=== PATIENT | female | born 1940 | race Caucasian/White ===

== ENCOUNTER 2016-10-24 13:08 | Emergency (ER) | payer MEDICARE, OTHER ==
--- NOTE | 2016-10-24 13:35 | Emergency Department Record ---
History of Present Illness - General Chief complaint: Female Urogenital Problem Stated complaint: UTI Time Seen by Provider: 10/24/16 13:28 Source: Patient Mode of Arrival: Ambulatory Limitations: No limitations - History of Present Illness Initial comments: 76 yo female presents to ED with a CC of burning with urination associated with frequency, urgency, and hematuria symptoms. Patient reports a history of similar symptoms related to urinary tract infections, denies nausea, vomiting, or flank pain symptoms. Patient denies fevers, chills, or recent illness. Patient paulino snot take anticoagulation medications at her baseline. MD Complaint: Dysuria Onset/Timin -: Hour(s) Severity: Moderate Severity scale (1-10): 10 Quality: Burning, Stabbing Consistency: Getting worse Improves with: None Worsens with: Urination Associated Symptoms: Denies other symptoms - Related Data Previous Rx's Medication Instructions Recorded Ciprofloxacin HCl [Cipro] 500 mg PO Q12HR #14 tablet 10/24/16 Allergies Allergy/AdvReac Type Severity Reaction Status Date / Time nitrofurantoin Allergy Intermediate RASH Verified 10/24/16 13:18 [From Macrobid] nitrofurantoin Allergy Intermediate RASH Verified 10/24/16 13:18 macrocrystalline [From Macrodantin] penicillin V Allergy Intermediate rash Verified 10/24/16 13:18 Sulfa (Sulfonamide Allergy Intermediate SWELLING Verified 10/24/16 13:18 Antibiotics) OF THE FACE sulfamethoxazole Allergy Intermediate SWELLING Verified 10/24/16 13:18 [From Bactrim] OF THE FACE trimethoprim [From Bactrim] Allergy Intermediate SWELLING Verified 10/24/16 13: 18 OF THE FACE Travel Screening - Travel/Exposure Within Last 30 Days Have you traveled within the last 30 days?: No - Travel/Exposure Within Last Year Have you traveled outside the [place] in the last year?: No - Additonal Travel Details Have you been exposed to anyone with a communicable illness?: No - Travel Symptoms Symptom Screening: None Review of Systems Constitutional: Denies: Chills, Fever, Malaise, Night sweats Eyes: Denies: Eye discharge, Eye pain ENT: Denies: Congestion, Ear pain, Epistaxis Respiratory: Denies: Cough, Dyspnea Cardiovascular: Denies: Chest pain, Dyspnea on exertion Endocrine: Denies: Fatigue, Heat or cold intolerance Gastrointestinal: Denies: Abdominal pain, Nausea, Vomiting Genitourinary: Reports: Dysuria, Frequency, Hematuria, Urgency. Denies: Retention Musculoskeletal: Denies: Arthralgia, Back pain, Gout, Joint swelling Skin: Denies: Bruising, Change in color Neurological: Denies: Abnormal gait, Confusion, Headache Psychiatric: Denies: Anxiety Hematological/Lymphatic: Denies: Anemia, Blood Clots Past Medical History - SOCIAL HISTORY Smoking Status: Never smoker Alcohol Use: None Drug Use: None - RESPIRATORY Hx Respiratory Disorders: No - CARDIOVASCULAR Hx Cardio Disorders: Yes Hx Edema: Yes Hx Hypertension: Yes - NEURO Hx Neuro Disorders: No - GI Hx GI Disorders: Yes Hx Reflux: Yes Hx Ulcer: Yes - Hx Genitourinary Disorders: No - ENDOCRINE Hx Endocrine Disorders: Yes Hx Diabetes: Yes Hx Thyroid Disease: Yes (low) - MUSCULOSKELETAL Hx Musculoskeletal Disorders: No - PSYCH Hx Psych Problems: Yes Hx Anxiety: Yes Hx Depression: Yes - HEMATOLOGY/ONCOLOGY Hx Hematology/Oncology Disorders: Yes Hx Cancer: Yes (Colon) Hx Chemotherapy: Yes Hx Radiation Therapy: No Family Medical History Any Significant Family History?: Yes Hx Cancer: Father, Mother, Brother/Sister Hx Diabetes: Father Hx Heart Disease: Mother Physical Exam - General General Appearance: Alert, Oriented x3, Cooperative, No acute distress, Other ( patient is sitting in chair, well appearing on examination) Limitations: No limitations - Head Head exam: Atraumatic, Normocephalic, Normal inspection Head exam detail: negative: Abrasion, Contusion, Hawthorne's sign, General tenderness, Hematoma, Laceration - Eye Eye exam: Normal appearance. negative: Conjunctival injection, Periorbital swelling, Periorbital tenderness, Scleral icterus - ENT Ear exam: negative: Auricular hematoma, Auricular trauma Nasal Exam: negative: Active bleeding, Discharge, Dried blood, Foreign body Mouth exam: negative: Drooling, Laceration, Muffled voice, Tongue elevation - Neck Neck exam: Normal inspection. negative: Meningismus, Tenderness - Respiratory Respiratory exam: Normal lung sounds bilaterally. negative: Respiratory distress, Rhonchi, Stridor, Wheezes - Cardiovascular Cardiovascular Exam: Regular rate, Normal rhythm, Normal heart sounds - GI/Abdominal GI/Abdominal exam: Soft. negative: Pulsatile mass, Rebound, Rigid, Tenderness - Rectal Rectal exam: Deferred - exam: Deferred - Extremities Extremities exam: Normal inspection. negative: Calf tenderness, Pedal edema, Tenderness - Back Back exam: Reports: Normal inspection. Denies: CVA tenderness (R), CVA tenderness (L) - Neurological Neurological exam: Alert, Normal gait, Oriented X3 - Psychiatric Psychiatric exam: Normal affect, Normal mood - Skin Skin exam: Normal color. negative: Abrasion Type of lesion: negative: abrasion Course Vital Signs 10/24/16 13:17 Temperature 97.4 F L Pulse Rate [ 95 H Pulse Ox Probe] Respiratory 12 Rate Blood Pressure 143/68 [Right Arm] Pulse Ox 100 - Reevaluation(s) Reevaluation #1: 10/24/16 13:44 UA reviewed, RBC's are TNTC, 36-50 WBCs, 1+ Bacteria are present. Patient denies any flank or back pain symptoms, denies fevers, chills, nausea, vomiting , or other systemic signs of illness. Patient is well appearing on examination without any clinical signs of kidney stone complicating her UTI symptoms. Will initiate treatment with Macrobid with instructions to return for any back pain symptoms, fever, or worsening of her symptoms. Patient verbalizes understanding of all instructions. Disposition Disposition: Discharge Clinical Impression: UTI (urinary tract infection) Qualifiers: Urinary tract infection type: acute cystitis Hematuria presence: with hematuria Qualified Code(s): N30.01 - Acute cystitis with hematuria Disposition: Home, Self-Care Condition: (2) Stable Instructions: Urinary Tract Infection in Women (ED) Additional Instructions: Return to ED if your symptoms worsen or if you have any concerns. Cipro as directed. Follow-up with your family doctor in 3-5 days as directed. Prescriptions: Ciprofloxacin HCl [Cipro] 500 mg PO Q12HR #14 tablet Forms: Patient Portal Access Time of Disposition: 13:48
[2016-10-24 13:37] LABS: URINE APPEARANCE CLOUDY; URINE BILIRUBIN MODERATE (NEGATIVE); URINE BLOOD LARGE (NEGATIVE); URINE COLOR RED; URINE GLUCOSE (UA) NEGATIVE (NEGATIVE); URINE KETONE 15 mg/dL (NEGATIVE); URINE LEUKOCYTE ESTERASE LARGE (NEGATIVE); URINE NITRITE POSITIVE (NEGATIVE)
[2016-10-24 13:41] LABS: URINE BACTERIA 1+; URINE EPITHELIAL CELLS 0 - 2 (FEW); URINE WBC 36 - 50 (0-2/hpf)
== END 2016-10-24 14:00 | disposition home or self-care (01) ==
LOC: ER 13:08
DX: N30.01 Acute cystitis with hematuria (principal)
CPT/HCPCS: 81001; 99282

== ENCOUNTER 2019-01-12 20:29 | Observation (INO) | payer MEDICARE, OTHER ==
--- NOTE | 2019-01-12 20:39 | Emergency Department Record ---
History of Present Illness - General Chief Complaint: Syncope Stated Complaint: NEAR SYNCOPY Time Seen by Provider: 01/12/19 20:31 Source: Patient, EMS Mode of Arrival: EMS Limitations: No limitations - History of Present Illness Initial Comments: 78 yo female presents to ED for evaluation of generalized weakness and near syncope that began 2 days ago. Patient reports numerous loose stools, denies fevers, chills, or productive cough symptoms. Patient does report a history of colon cancer in 1993 now in remission s/p partial colectomy. Patient reports diffuse abdominal "cramping" on examination as well. Patient's initial SBP 70' s on arrival, improved 120's following 500 mL bolus given by EMS providers. MD Complaint: Almost passed out Onset/Timin -: Minutes(s) Prodromal Symptoms: Lightheaded -: Second(s) Witnessed: Yes - by bystander Injuries Sustained Associated with Event: None Current Symptoms: Weakness Treatments Prior to Arrival: IV fluids - [place] Coma Scale Eye Response: (4) Open spontaneously Motor Response: (6) Obeys commands Verbal Response: (5) Oriented [place] Total: 15 - Related Data On Hormonal Control: No Allergies Allergy/AdvReac Type Severity Reaction Status Date / Time nitrofurantoin Allergy Intermediate RASH Unverified 01/10/19 14:41 [From Macrobid] nitrofurantoin Allergy Intermediate RASH Unverified 01/10/19 14:41 macrocrystalline [From Macrodantin] penicillin V Allergy Intermediate rash Unverified 01/10/19 14:41 Sulfa (Sulfonamide Allergy Intermediate SWELLING Unverified 01/10/19 14:41 Antibiotics) OF THE FACE sulfamethoxazole Allergy Intermediate SWELLING Unverified 01/10/19 14:41 [From Bactrim] OF THE FACE trimethoprim [From Bactrim] Allergy Intermediate SWELLING Unverified 01/10/19 14 :41 OF THE FACE Review of Systems Constitutional: Denies: Chills, Fever, Malaise, Night sweats Eyes: Denies: Eye discharge, Eye pain ENT: Denies: Congestion, Ear pain, Epistaxis Respiratory: Denies: Cough, Dyspnea Cardiovascular: Denies: Chest pain, Dyspnea on exertion Endocrine: Denies: Fatigue, Heat or cold intolerance Gastrointestinal: Reports: Abdominal pain, Diarrhea. Denies: Constipation, Nausea, Vomiting Genitourinary: Denies: Incontinence, Retention Musculoskeletal: Denies: Arthralgia, Back pain, Gout, Joint swelling Skin: Denies: Bruising, Change in color Neurological: Denies: Abnormal gait, Confusion, Headache, Seizure Psychiatric: Denies: Anxiety Hematological/Lymphatic: Denies: Anemia, Blood Clots Past Medical History - SOCIAL HISTORY Smoking Status: Never smoker Drug Use: None - RESPIRATORY Hx Respiratory Disorders: No - CARDIOVASCULAR Hx Cardio Disorders: Yes Hx Edema: Yes Hx Hypertension: Yes - NEURO Hx Neuro Disorders: No - GI Hx GI Disorders: Yes Hx Reflux: Yes Hx Ulcer: Yes - Hx Genitourinary Disorders: No - ENDOCRINE Hx Endocrine Disorders: Yes Hx Diabetes: Yes Hx Thyroid Disease: Yes (low) - MUSCULOSKELETAL Hx Musculoskeletal Disorders: No - PSYCH Hx Psych Problems: Yes Hx Anxiety: Yes Hx Depression: Yes - HEMATOLOGY/ONCOLOGY Hx Hematology/Oncology Disorders: Yes Hx Cancer: Yes (Colon) Hx Chemotherapy: Yes Hx Radiation Therapy: No Family Medical History Hx Cancer: Father, Mother, Brother/Sister Hx Diabetes: Father Hx Heart Disease: Mother Physical Exam - General General Appearance: Alert, Oriented x3, Cooperative, Moderate distress, Other ( Appears pale on examination, weak and exhausted.) Limitations: No limitations - Head Head exam: Atraumatic, Normocephalic, Normal inspection Head exam detail: negative: Abrasion, Contusion, Hawthorne's sign, General tenderness, Hematoma, Laceration - Eye Eye exam: Normal appearance. negative: Conjunctival injection, Periorbital swelling, Periorbital tenderness, Scleral icterus - ENT Ear exam: negative: Auricular hematoma, Auricular trauma Nasal Exam: negative: Active bleeding, Discharge, Dried blood, Foreign body Mouth exam: negative: Drooling, Laceration, Muffled voice, Tongue elevation - Neck Neck exam: Normal inspection. negative: Meningismus, Tenderness - Respiratory Respiratory exam: Normal lung sounds bilaterally. negative: Rales, Respiratory distress, Rhonchi, Stridor - Cardiovascular Cardiovascular Exam: Regular rate, Normal rhythm, Normal heart sounds - GI/Abdominal GI/Abdominal exam: Soft. negative: Rebound, Rigid, Tenderness - Rectal Rectal exam: Deferred - exam: Deferred - Extremities Extremities exam: Normal inspection. negative: Calf tenderness, Pedal edema, Tenderness - Back Back exam: Denies: CVA tenderness (R), CVA tenderness (L) - Neurological Neurological exam: Alert, Normal gait, Oriented X3 - Psychiatric Psychiatric exam: Normal affect, Normal mood - Skin Skin exam: Normal color. negative: Abrasion Type of lesion: negative: abrasion Course - Reevaluation(s) Reevaluation #1: 01/12/19 20:38 EKG: NSR 78 Normal axis, LBBB T wave inversions I, AVL similar to 02/18/15 (unchanged) Reevaluation #2: 01/12/19 22:19 Laboratory studies were reviewed and are grossly unremarkable for an acute process except for the following: WBC 8.8 Hgb 11.3 BUN/Creatinine 41/1.9, GFR 27 (slihgtly less than the patient's baseline). LA 3.1. Patient has received 1.5 Liters NS, going for CT imaging of the abdoemn/pelvis at this time. Reevaluation #3: 01/12/19 23:34 CT Abdomen and Pelvis: Colitis from the transverse colon to the rectum No perforation/abscess Small fatty midline epigastric wall hernia Patient and her SO were updated on all results, will initiate treatment with Flagyl and Rocephin for initial treatment of her colitis. C. Diff toxin is till pending at [facility]. Reevaluation #4: 01/13/19 06:50 Case was discussed with Harika Koch NP, will accept admission at this time. Medical Decision Making - Lab Data Result diagrams: 01/12/19 20:44 01/12/19 20:55 Disposition Disposition: Admit Clinical Impression: Colitis, Dehydration Diarrhea Qualifiers: Diarrhea type: infectious Qualified Code(s): A09 - Infectious gastroenteritis and colitis, unspecified Disposition: Still a Patient at [facility] Decision to Admit: Admit from ER Decision to Admit Date: 01/12/19 Decision to Admit Time: 23:38 Condition: (2) Stable Time of Disposition: 23:38 Quality - Quality Measures Quality Measures: N/A - Blood Pressure Screening Does Patient Have Any of the Following: Active Dx of HTN Blood Pressure Classification: Hypertensive Reading Systolic Measurement: 144 Diastolic Measurement: 66 Screening for High Blood Pressure: Patient Exclusion, Hx of HTN [[id number]]
[2019-01-12] MEDS ORDERED: 0.9 % SODIUM CHLORIDE 1000ML 1,000 ML IV SCH (20:45)
[2019-01-12 20:50] LABS: HEMATOCRIT 33.8 % (35.0-47.0); HEMOGLOBIN 11.3 gm/dl (11.6-16.0); MEAN CELL VOLUME 104.6 fl (81-97); MEAN CORPUSCULAR HGB CONC 33.4 g/dl (32-36); MEAN PLATELET VOLUME 10.9 fl (7.4-10.4); PLATELET COUNT 261 K/uL (130-400); RED BLOOD COUNT 3.23 M/uL (3.80-5.40); RED CELL DISTRIBUTION WIDTH 15.6 % (11.5-14.5); WHITE BLOOD COUNT W/O DIFF 8.8 K/uL (4.2-12.2)
[2019-01-12 20:51] LABS: MEAN CORPUSCULAR HEMOGLOBIN 34.9 pg (27-33)
[2019-01-12 22:02] LABS: BILIRUBIN,TOTAL 0.4 mg/dL (0.2-1.0); CREATININE 1.9 mg/dL (0.5-0.9); TOTAL PROTEIN 6.3 g/dL (6.6-8.7)
[2019-01-12 22:02] LABS: ANISOCYTOSIS 1+; PLATELET ESTIMATE NORMAL (NORMAL)
[2019-01-12 22:07] LABS: ALB/GLOB RATIO 1.3 (1.1-1.8); ALBUMIN 3.6 g/dL (4.0-5.0)
[2019-01-12] MEDS: ZINC OXIDE TOP SCH ×3 (22:09)
[2019-01-12] MEDS: AL HYDROX TOP SCH ×3 (22:09)
[2019-01-12] MEDS: NYSTATIN TOP SCH ×3 (22:09)
[2019-01-12] MEDS: MAGNESIUM HYDROXIDE TOP SCH ×3 (22:09)
[2019-01-12 22:17] LABS: URINE APPEARANCE SL CLOUDY; URINE BILIRUBIN NEGATIVE (NEGATIVE); URINE BLOOD NEGATIVE (NEGATIVE); URINE COLOR YELLOW; URINE GLUCOSE (UA) NEGATIVE (NEGATIVE); URINE KETONE NEGATIVE (NEGATIVE); URINE LEUKOCYTE ESTERASE MODERATE (NEGATIVE); URINE NITRITE NEGATIVE (NEGATIVE); URINE PROTEIN NEGATIVE (NEGATIVE); URINE UROBILINOGEN 0.2 E.U./dL (0.20 - 1.00)
[2019-01-12 22:24] LABS: URINE BACTERIA 4+; URINE EPITHELIAL CELLS 0 - 2 (FEW); URINE RBC 0 - 2 (NONE SEEN); URINE WBC 21 - 35 (0-2/hpf)
[2019-01-12] MEDS ORDERED: METRONIDAZOLE IVPB 500 MG/100 ML BAG IVPB ONE (23:37)
[2019-01-12] MEDS ORDERED: CEFTRIAXONE 1GM/50ML BAG 1 GM/50 ML BAG IVPB ONE (23:37)
[2019-01-13] MEDS ORDERED: 0.9 % SODIUM CHLORIDE 1000ML 1,000 ML IV PRN (00:44)
[2019-01-13] MEDS ORDERED: LEVOTHYROXINE SODIUM 75 MCG TABLET PO SCH (07:00)
[2019-01-13] MEDS: METRONIDAZOLE IVPB 500 MG/100 ML BAG IVPB SCH ×2 (09:35→18:58)
[2019-01-13] MEDS: LEVOTHYROXINE SODIUM 75 MCG TABLET PO SCH (09:35)
[2019-01-13] MEDS: NYSTATIN TOP SCH ×12 (09:42→22:00)
[2019-01-13] MEDS: MAGNESIUM HYDROXIDE TOP SCH ×12 (09:42→22:00)
[2019-01-13] MEDS: AL HYDROX TOP SCH ×12 (09:42→22:00)
[2019-01-13] MEDS: ZINC OXIDE TOP SCH ×12 (09:42→22:00)
[2019-01-13] MEDS: 0.9 % SODIUM CHLORIDE 1000ML 1,000 ML IV PRN (11:56)
--- NOTE | 2019-01-13 18:17 | History & Physical ---
History of Present Illness - Date of Service Date of Service for History & Physical: 01/13/19 - History of Present Illness Admitting Diagnosis: Colitis. Dehydration. Diarrhea History of Present Illness: Domi Sanderson is an 78 y/o female brought to ED for 2 day history of generalized weakness, near syncope, and persistent loose stools and abdominal cramping. She denied fevers cough, blood in stool. + nausea at the time without vomiting. SHe does have a hx of colon cancer in 1993 s/p partial colectomy. Last colonoscopy within the last year and was normal. She denies any sick contacts. She denies any antibiotic use in the last 30 days. Denies any previous history of colon infections or chronic colitis. Past medical history includes HTN, GERD, Dm-2, hypothyroidism, anxiety, depression, colon cancer, renal insufficiency While in the ED WBC 8.8, Hgb 11.3, MCV 104.6, sodium 133, potassium 4.0, BUN/Cr 41/1.9, lactic acid 3.1, lipase, U/A- moderate leukocytes, 4+ bacteria, 21-[address] abdomen/pelvis + for colitis from distal transverse colon to rectum. EKG NSR, LBBB, atrial premature complex. Stools were sent to lab for c-diff culture. She was admitted to the floor for IV antibiotics, IV hydration, supportive care. 01/13/19 1030- Resting in bed comfortably. Reports has had no diarrhea since arriving to the floor. Denies nausea or any further dizziness or presyncope/ syncope. Denies abdominal pain but does have quite a bit of abdominal cramping. Has tolerated a clear liquid diet this am PCP: Loni Staton [employer] Operator: [facility] [place] Nephrology Travel Screening - Travel/Exposure Within Last 30 Days Have you traveled within the last 30 days?: No - Travel/Exposure Within Last Year Have you traveled outside the [place] in the last year?: No - Additonal Travel Details Have you been exposed to anyone with a communicable illness?: No - Travel Symptoms Symptom Screening: Weakness, Diarrhea Review of Systems Constitutional: Denies: Chills, Fever, Malaise, Night sweats Eyes: Denies: Eye discharge, Eye pain ENT: Denies: Congestion, Ear pain, Epistaxis Respiratory: Denies: Cough, Dyspnea Cardiovascular: Denies: Chest pain, Dyspnea on exertion Endocrine: Denies: Fatigue, Heat or cold intolerance Gastrointestinal: Reports: Abdominal pain, Diarrhea. Denies: Constipation, Nausea, Vomiting Genitourinary: Denies: Incontinence, Retention Musculoskeletal: Denies: Arthralgia, Back pain, Gout, Joint swelling Skin: Denies: Bruising, Change in color Neurological: Denies: Abnormal gait, Confusion, Headache, Seizure Psychiatric: Denies: Anxiety Hematological/Lymphatic: Denies: Anemia, Blood Clots Past Medical History - SOCIAL HISTORY Smoking Status: Never smoker Drug Use: None - RESPIRATORY Hx Respiratory Disorders: No - CARDIOVASCULAR Hx Cardio Disorders: Yes Hx Edema: Yes Hx Hypertension: Yes - NEURO Hx Neuro Disorders: No - GI Hx GI Disorders: Yes Hx Reflux: Yes Hx Ulcer: Yes - Hx Genitourinary Disorders: No - ENDOCRINE Hx Endocrine Disorders: Yes Hx Diabetes: Yes Hx Thyroid Disease: Yes (low) - MUSCULOSKELETAL Hx Musculoskeletal Disorders: No - PSYCH Hx Psych Problems: Yes Hx Anxiety: Yes Hx Depression: Yes - HEMATOLOGY/ONCOLOGY Hx Hematology/Oncology Disorders: Yes Hx Cancer: Yes (Colon) Hx Chemotherapy: Yes Hx Radiation Therapy: No Family Medical History Hx Cancer: Father, Mother, Brother/Sister Hx Diabetes: Father Hx Heart Disease: Mother H&P Meds/Allergies - Allergies Allergies: Allergies Allergy/AdvReac Type Severity Reaction Status Date / Time nitrofurantoin Allergy Intermediate RASH Unverified 01/10/19 14:41 [From Macrobid] nitrofurantoin Allergy Intermediate RASH Unverified 01/10/19 14:41 macrocrystalline [From Macrodantin] penicillin V Allergy Intermediate rash Unverified 01/10/19 14:41 Sulfa (Sulfonamide Allergy Intermediate SWELLING Unverified 01/10/19 14:41 Antibiotics) OF THE FACE sulfamethoxazole Allergy Intermediate SWELLING Unverified 01/10/19 14:41 [From Bactrim] OF THE FACE trimethoprim [From Bactrim] Allergy Intermediate SWELLING Unverified 01/10/19 14 :41 OF THE FACE - Active Medications Active Medications: Current Medications Nystatin 30 gm/ Al Hydroxide/Mg Hydroxide 30 ml/ Zinc Oxide 30 gm 0 gm TOP QID CHASE Last Admin: 01/13/19 14:34 Dose: 30 cream.appl Metronidazole/Sodium Chloride (Flagyl) 500 mg in 100 mls @ 100 mls/hr IVPB Q8H COUNTS INCLUDE 234 BEDS AT THE [facility] Stop: 01/18/19 09:31 Last Infusion: 01/13/19 10:35 Dose: Infused Sodium Chloride () 1,000 mls @ 100 mls/hr IV .Q10H PRN PRN Reason: LARGE VOLUME IV Last Admin: 01/13/19 11:56 Dose: 100 mls/hr Levothyroxine Sodium (Synthroid) 75 mcg PO DAILYTHY CHASE Last Admin: 01/13/19 09:35 Dose: 75 mcg Physical Exam - Vital Signs Vital Signs: Vital Signs - Last 24 Hrs Temp Pulse Pulse Resp BP BP Pulse Ox 01/13/19 16:00 98.1 F 84 16 141/72 97 01/13/19 12:00 98.7 F 86 H 144/80 98 01/13/19 08:00 97.6 F 73 16 126/68 93 L 01/13/19 03:00 97.1 F L 85 18 107/55 97 01/13/19 00:25 98.0 F 95 H 18 140/71 97 01/13/19 00:05 94 H 144/66 97 01/12/19 22:14 85 18 136/63 97 01/12/19 20:35 97.6 F 77 20 128/57 97 - General General Appearance: Alert, Oriented x3, Cooperative Limitations: No limitations - Head Head exam: Atraumatic, Normocephalic, Normal inspection Head exam detail: negative: Abrasion, Contusion, Hawthorne's sign, General tenderness, Hematoma, Laceration - Eye Eye exam: Normal appearance. negative: Conjunctival injection, Periorbital swelling, Periorbital tenderness, Scleral icterus - ENT Ear exam: negative: Auricular hematoma, Auricular trauma Nasal Exam: negative: Active bleeding, Discharge, Dried blood, Foreign body Mouth exam: negative: Drooling, Laceration, Muffled voice, Tongue elevation - Neck Neck exam: Normal inspection. negative: Meningismus, Tenderness - Respiratory Respiratory exam: Normal lung sounds bilaterally. negative: Rales, Respiratory distress, Rhonchi, Stridor - Cardiovascular Cardiovascular Exam: Regular rate, Normal rhythm, Normal heart sounds Peripheral Pulses: 2+: Dorsalis Pedis (R), Dorsalis Pedis (L) - GI/Abdominal GI/Abdominal exam: Soft, Hyperactive bowel sounds, Tenderness (upper mid abdoen) . negative: Distended, Rebound, Rigid - Rectal Rectal exam: Deferred - exam: Deferred - Extremities Extremities exam: Normal inspection. negative: Calf tenderness, Pedal edema, Tenderness - Back Back exam: Denies: CVA tenderness (R), CVA tenderness (L) - Neurological Neurological exam: Alert, Normal gait, Oriented X3 - Psychiatric Psychiatric exam: Normal affect, Normal mood - Skin Skin exam: Normal color. negative: Abrasion Type of lesion: negative: abrasion Results - Labs Result Diagrams: 01/12/19 20:44 01/12/19 20:55 Labs Last 24 Hours: Laboratory Results - last 24 hr 01/12/19 01/12/19 01/12/19 20:32 20:32 20:44 WBC Cancelled 8.8 Corrected WBC Cancelled RBC Cancelled 3.23 L Hgb Cancelled 11.3 L Hct Cancelled 33.8 L MCV Cancelled 104.6 H MCH Cancelled 34.9 H MCHC Cancelled 33.4 RDW Cancelled 15.6 H Plt Count Cancelled 261 MPV Cancelled 10.9 H Gran % Cancelled Neutrophils % 60.0 Band Neutrophils % 1.0 Lymphocytes % Cancelled Monocytes % Cancelled Eosinophils % Cancelled Not Reportable Basophils % Cancelled Not Reportable Lymphocytes 33.0 Monocytes 6.0 Platelet Estimate Normal Anisocytosis 1+ Sodium Potassium Chloride Carbon Dioxide Anion Gap BUN Creatinine Estimated GFR Random Glucose Lactic Acid Calcium Total Bilirubin AST ALT Alkaline Phosphatase Total Protein Albumin Globulin Albumin/Globulin Ratio Lipase Urine Color Urine Appearance Urine pH Ur Specific [place] Urine Protein Urine Glucose (UA) Urine Ketones Urine Blood Urine Nitrite Urine Bilirubin Urine Urobilinogen Ur Leukocyte Esterase Urine RBC Urine WBC Ur Epithelial Cells Urine Bacteria C. difficile Ag & Toxin Cancelled Miscellaneous Test 01/12/19 01/12/19 01/12/19 20:55 21:00 21:40 WBC Corrected WBC RBC Hgb Hct MCV MCH MCHC RDW Plt Count MPV Gran % Neutrophils % Band Neutrophils % Lymphocytes % Monocytes % Eosinophils % Basophils % Lymphocytes Monocytes Platelet Estimate Anisocytosis Sodium 133 L Potassium 4.0 Chloride 104 Carbon Dioxide 17.0 L Anion Gap 12.0 BUN 41 H Creatinine 1.9 H Estimated GFR 27 Random Glucose 137 H Lactic Acid Cancelled 3.1 H Calcium 9.1 Total Bilirubin 0.40 AST 14 ALT 9 Alkaline Phosphatase 38 Total Protein 6.3 L Albumin 3.6 L Globulin 2.7 Albumin/Globulin Ratio 1.3 Lipase 45 Urine Color Urine Appearance Urine pH Ur Specific [place] Urine Protein Urine Glucose (UA) Urine Ketones Urine Blood Urine Nitrite Urine Bilirubin Urine Urobilinogen Ur Leukocyte Esterase Urine RBC Urine WBC Ur Epithelial Cells Urine Bacteria C. difficile Ag & Toxin Miscellaneous Test See separate report 01/12/19 Unknown WBC Corrected WBC RBC Hgb Hct MCV MCH MCHC RDW Plt Count MPV Gran % Neutrophils % Band Neutrophils % Lymphocytes % Monocytes % Eosinophils % Basophils % Lymphocytes Monocytes Platelet Estimate Anisocytosis Sodium Potassium Chloride Carbon Dioxide Anion Gap BUN Creatinine Estimated GFR Random Glucose Lactic Acid Calcium Total Bilirubin AST ALT Alkaline Phosphatase Total Protein Albumin Globulin Albumin/Globulin Ratio Lipase Urine Color Yellow Urine Appearance Sl cloudy Urine pH 5.5 Ur Specific [place] 1.010 Urine Protein Negative Urine Glucose (UA) Negative Urine Ketones Negative Urine Blood Negative Urine Nitrite Negative Urine Bilirubin Negative Urine Urobilinogen 0.2 Ur Leukocyte Esterase Moderate H Urine RBC 0 - 2 Urine WBC 21 - 35 Ur Epithelial Cells 0 - 2 Urine Bacteria 4+ C. difficile Ag & Toxin Miscellaneous Test - Imaging and Cardiology CT scan - abdomen Status: Report reviewed (distal tranverse colon to rectum colitis) VTE H&P Assessment - Risk for VTE Risk for VTE: Yes Risk Level: Low Risk Assessment Date: 01/13/19 Risk Assessment Time: 18:21 VTE Orders Placed or Will Be Placed: Yes Plan - Detailed Diagnosis and Plan (1) Colitis Current Visit: Yes Status: Acute Base Code: K52.9 - NONINFECTIVE GASTROENTERITIS AND COLITIS, UNSPECIFIED Comment: 01/13/19 - Awaiting c-diff stool culture results - Continue Flagyl IV until results available - Clear liquid diet, advance as tolerated - IV hydration (2) UTI (urinary tract infection) Current Visit: No Status: Acute Qualifiers: Urinary tract infection type: acute cystitis Hematuria presence: with hematuria Qualified Code(s): N30.01 - Acute cystitis with hematuria Base Code: N39.0 - URINARY TRACT INFECTION, SITE NOT SPECIFIED Comment: - U/A + moderate leukocytes, 4+ bacterial, 21-35 WBC - Urine culture pending - Rocephin 1gm Q 24 hr (3) Full code status Current Visit: Yes Status: Acute Base Code: Z78.9 - OTHER SPECIFIED HEALTH STATUS Comment: 01/13/19 (4) DVT prophylaxis Current Visit: Yes Status: Acute Base Code: [id number] - Comment: 01/13/19
[2019-01-13] MEDS ORDERED: CEFTRIAXONE SODIUM 1 GM in 0.9 % SODIUM CHLORIDE 100ML 100 ML IVPB SCH (18:30)
[2019-01-13] MEDS: HYDROCODONE/APAP 5/325MG TABLET PO PRN (22:44)
[2019-01-14] MEDS ORDERED: DIPHENHYDRAMINE HCL 25 MG CAPSULE PO ONE (02:17)
[2019-01-14] MEDS: METRONIDAZOLE IVPB 500 MG/100 ML BAG IVPB SCH ×2 (02:29→09:45)
[2019-01-14] MEDS: 0.9 % SODIUM CHLORIDE 1000ML 1,000 ML IV PRN (06:08)
[2019-01-14] MEDS: HYDROCODONE/APAP 5/325MG TABLET PO PRN (06:11)
[2019-01-14] MEDS: LEVOTHYROXINE SODIUM 75 MCG TABLET PO SCH (06:11)
[2019-01-14 06:30] LABS: BASO % 0.3 % (0-6); EOS % 1.7 % (0-6); GRAN % 68.4 % (47-80); HEMATOCRIT 34.1 % (35.0-47.0); HEMOGLOBIN 11.1 gm/dl (11.6-16.0); LYMPH % 21.1 % (16-45); MEAN CORPUSCULAR HEMOGLOBIN 33.8 pg (27-33); MEAN CORPUSCULAR HGB CONC 32.6 g/dl (32-36); MEAN PLATELET VOLUME 10.1 fl (7.4-10.4); MONO % 8.5 % (0-9); PLATELET COUNT 276 K/uL (130-400); RED BLOOD COUNT 3.28 M/uL (3.80-5.40); RED CELL DISTRIBUTION WIDTH 14.9 % (11.5-14.5); WHITE BLOOD COUNT W/O DIFF 7.6 K/uL (4.2-12.2)
[2019-01-14] MEDS: AL HYDROX TOP SCH ×3 (09:48)
[2019-01-14] MEDS: ZINC OXIDE TOP SCH ×3 (09:48)
[2019-01-14] MEDS: MAGNESIUM HYDROXIDE TOP SCH ×3 (09:48)
[2019-01-14] MEDS: NYSTATIN TOP SCH ×3 (09:48)
--- NOTE | 2019-01-14 11:10 | Discharge Summary ---
Providers Discharge Summary Date: 01/14/19 Date of admission: 01/13/19 00:10 Expected Date of Discharge: 01/14/19 Attending physician: ROGELIO ROGER Primary care physician: Loni Staton N.P. Physical Exam - Vital Signs Vital Signs: Vital Signs - Last 24 Hrs Temp Pulse Resp BP BP Pulse Ox 01/14/19 08:48 20 01/14/19 08:00 97.7 F 74 16 111/55 94 L 01/14/19 03:40 97.2 F L 83 18 130/75 97 01/13/19 20:56 98.1 F 141/72 01/13/19 20:00 98.1 F 98 H 18 152/83 96 01/13/19 16:00 98.1 F 84 16 141/72 97 01/13/19 12:00 98.7 F 86 H 144/80 98 - General General Appearance: Alert, Oriented x3, Cooperative Limitations: No limitations - Head Head exam: Atraumatic, Normocephalic, Normal inspection Head exam detail: negative: Abrasion, Contusion, Hawthorne's sign, General tenderness, Hematoma, Laceration - Eye Eye exam: Normal appearance. negative: Conjunctival injection, Periorbital swelling, Periorbital tenderness, Scleral icterus - ENT Ear exam: negative: Auricular hematoma, Auricular trauma Nasal Exam: negative: Active bleeding, Discharge, Dried blood, Foreign body Mouth exam: negative: Drooling, Laceration, Muffled voice, Tongue elevation - Neck Neck exam: Normal inspection. negative: Meningismus, Tenderness - Respiratory Respiratory exam: Normal lung sounds bilaterally. negative: Rales, Respiratory distress, Rhonchi, Stridor - Cardiovascular Cardiovascular Exam: Regular rate, Normal rhythm, Normal heart sounds Peripheral Pulses: 2+: Dorsalis Pedis (R), Dorsalis Pedis (L) - GI/Abdominal GI/Abdominal exam: Soft, Hyperactive bowel sounds. negative: Distended, Rebound , Rigid, Tenderness - Rectal Rectal exam: Deferred - exam: Deferred - Extremities Extremities exam: Normal inspection. negative: Calf tenderness, Pedal edema, Tenderness - Back Back exam: Denies: CVA tenderness (R), CVA tenderness (L) - Neurological Neurological exam: Alert, Normal gait, Oriented X3 - Psychiatric Psychiatric exam: Normal affect, Normal mood - Skin Skin exam: Normal color. negative: Abrasion Type of lesion: negative: abrasion Hospitalization - Hospitalization Admission Diagnosis: Colitis. Dehydration. Diarrhea - Problem List/Discharge Diagnosis (1) Colitis Status: Acute Base Code: K52.9 - NONINFECTIVE GASTROENTERITIS AND COLITIS, UNSPECIFIED Comment: 01/14/19 - C-diff stool culture negative, [facility] unable to run a full stool culture as has sent the specimen to another outside lab for DNA testing - She has had no further stool since arriving to the floor so unable to collect further samples - Has responded well to Flagyl - Tolerated advanced diet today - IV SL - No personal history of ulcerative colisit. Will DC home on empiric infectious colitis treatment in light of no further stool culture studies and improvement on therapy (2) UTI (urinary tract infection) Status: Inactive Discharge Diagnosis: Urinary tract infection type: acute cystitis Hematuria presence: with hematuria Qualified Code(s): N30.01 - Acute cystitis with hematuria Base Code: N39.0 - URINARY TRACT INFECTION, SITE NOT SPECIFIED Comment: - U/A + moderate leukocytes, 4+ bacterial, 21-35 WBC - Urine culture pending - Rocephin 1gm Q 24 hr - Transition to Cipro 500mg BID at discharge, renal function has normalized, GFR 57 (3) Full code status Status: Acute Base Code: Z78.9 - OTHER SPECIFIED HEALTH STATUS Comment: 01/14 (4) DVT prophylaxis Status: Acute Base Code: [id number] - Comment: 01/14/19 - Hospitalization Course Disposition: Home, Self-Care Hospital Course: Domi Sanderson is an 78 y/o female brought to ED for 2 day history of generalized weakness, near syncope, and persistent loose stools and abdominal cramping. She denied fevers cough, blood in stool. + nausea at the time without vomiting. SHe does have a hx of colon cancer in 1993 s/p partial colectomy. Last colonoscopy within the last year and was normal. She denies any sick contacts. She denies any antibiotic use in the last 30 days. Denies any previous history of colon infections or chronic colitis. Past medical history includes HTN, GERD, Dm-2, hypothyroidism, anxiety, depression, colon cancer, renal insufficiency While in the ED WBC 8.8, Hgb 11.3, MCV 104.6, sodium 133, potassium 4.0, BUN/Cr 41/1.9, lactic acid 3.1, lipase, U/A- moderate leukocytes, 4+ bacteria, 21-[address] abdomen/pelvis + for colitis from distal transverse colon to rectum. EKG NSR, LBBB, atrial premature complex. Stools were sent to lab for c-diff culture. She was admitted to the floor for IV antibiotics, IV hydration, supportive care. 01/13/19 1030- Resting in bed comfortably. Reports has had no diarrhea since arriving to the floor. Denies nausea or any further dizziness or presyncope/ syncope. Denies abdominal pain but does have quite a bit of abdominal cramping. Has tolerated a clear liquid diet this am 01/14/19: Has responded well to treatment. Did have an episode of flushing and feeling like she was having a "sugar attack" early this morning. Nursing responded with checking a blood sugar, stat vitals signs, telemetry- all were normal. "Attack" resolved spontaneously and has been feeling well since. Continues to have abdominal cramping, although improved. She is not a candidate for Bentyl as can cause potassium concentration which is risky due to her history of renal insufficiency and current use of Cipro. SHe tolerated an advance in her diet today without any worsening of abdominal cramping and has not had any stooling since admit. Will discharge home on empiric infectious colitis and UTI treatment. Follow up with PCP 1 week. PCP: Loni Staton Rn [place] [facility] [place] Procedures: Imaging and X-Rays 01/12/19 22:09 ABDOMEN/PELVIS WO CONTRAST [CT] Stat Cardiology Procedures 01/12/19 20:32 EKG NOW Abnormal Labs: Abnormal Lab Results 01/12/19 01/12/19 01/12/19 Range/Units 20:44 20:55 21:40 RBC 3.23 L (3.80-5.40) M/uL Hgb 11.3 L (11.6-16.0) gm/dl Hct 33.8 L (35.0-47.0) % MCV 104.6 H (81-97) fl MCH 34.9 H (27-33) pg RDW 15.6 H (11.5-14.5) % MPV 10.9 H (7.4-10.4) fl Sodium 133 L (136-145) mmol/L Chloride (98-107) mmol/L Carbon Dioxide 17.0 L (22-29) mmol/L BUN 41 H (8-23) mg/dL Creatinine 1.9 H (0.5-0.9) mg/dL Random Glucose 137 H (74-109) mg/dL Lactic Acid 3.1 H (0.5-2.2) mmol/L Total Protein 6.3 L (6.6-8.7) g/dL Albumin 3.6 L (4.0-5.0) g/dL Ur Leukocyte Esterase (NEGATIVE) 01/12/19 01/14/19 01/14/19 Range/Units Unknown 05:55 05:55 RBC 3.28 L (3.80-5.40) M/uL Hgb 11.1 L (11.6-16.0) gm/dl Hct 34.1 L (35.0-47.0) % MCV 104.0 H (81-97) fl MCH 33.8 H (27-33) pg RDW 14.9 H (11.5-14.5) % MPV (7.4-10.4) fl Sodium (136-145) mmol/L Chloride 108 H (98-107) mmol/L Carbon Dioxide (22-29) mmol/L BUN (8-23) mg/dL Creatinine 1.0 H (0.5-0.9) mg/dL Random Glucose 135 H (74-109) mg/dL Lactic Acid (0.5-2.2) mmol/L Total Protein (6.6-8.7) g/dL Albumin (4.0-5.0) g/dL Ur Leukocyte Esterase Moderate H (NEGATIVE) Condition at Discharge: (2) Stable Discharge Medications - Discharge Medications Prescriptions: Ciprofloxacin HCl [Cipro] 500 mg PO Q12HR 7 Days #10 tablet Metronidazole [Flagyl] 500 mg PO TID 7 Days #21 tablet Home Medications: Ambulatory Orders Ciprofloxacin HCl [Cipro] 500 mg PO Q12HR 7 Days #10 tablet 01/14/19 [Last Taken Unknown] Hydrocodone/APAP 5/325Mg [[place] 5Mg/325Mg] 1 each PO Q6H PRN tab 01/14/19 [ Last Taken Unknown] Metronidazole [Flagyl] 500 mg PO TID 7 Days #21 tablet 01/14/19 [Last Taken Unknown] Discharge Plan - Discharge Instructions Activity at Discharge: Increase Activity as Tolerated Diet at Discharge: Advance to Usual Diet Instructions: Ulcerative Colitis (DC), Infectious Colitis (GEN) Additional Instructions: Follow up with your doctor in 1 week and will need repeat labs to check kidney function Take antibiotics as directed: Flagyl 500mg one by mouth 3 times a day. Start this afternoon and then one tonight. Cipro 500mg by mouth twice a day. Take one tonight, then twice a day. Resume home meds. Diet and activity as tolerated. Return to the Emergency dept if getting worse. Quality Measures - Quality Measures Quality Measures: Advance Directives, Documentation of Current Medications in Medical Record, Elder Maltreatment Screen and Follow-Up Plan, Screening for High Blood Pressure and F/U Documented - Current Medications Quality Measure: Measure #130: Documentation of Current Medications Documentation of Current Medications: <Current Medications Documented/Reviewed> [G8443] - Blood Pressure Screening Quality Measure: Screening for High Blood Pressure and Follow-Up Documented Does Patient Have Any of the Following: Active Dx of HTN Blood Pressure Classification: Hypertensive Reading Systolic Measurement: 141 Diastolic Measurement: 72 Screening for High Blood Pressure: Patient Exclusion, Hx of HTN [G9744] - Advance Directives Quality Measure: Measure #47: Care Plan Advance Directives Established: No Advance Directives Information Provided To Patient: Already Provided Advance Directives on File: No Living Will: No Power of Ambulatory Care Nurse: No Advance Care Planning: <Care Plan/Decision Maker Documented; Discussed & Documented> [0920F] - Elder Abuse Suspicion Index Screening: Elder Abuse Suspicion Index Screening Rely on people for bathing, dressing, shopping, banking, etc: No Prevented from getting food, clothes, medication, etc: No Made to feel shamed or threatened by someone: No Forced to sign papers or use money against will: No Feel afraid, touched in ways not wanted or hurt physically: No Poor eye contact, withdrawn, malnourished, cuts or bruises: No Screening Result: Negative result EASI Reference Information: Stella FARFAN, Adelia Best, Caio Merrill, Rommel Boyce.Development and validation of a tool to assist physicians identification of elder abuse: The Elder Abuse Suspicion Index (EASI ). Journal of Elder Abuse and Neglect, 2008; 20 (3): 276-300. - Elder Maltreatment Screen Quality Measures: Elder Maltreatment Screen and Follow-Up Plan Elder Maltreatment Screen: <Negative, No Follow-Up Plan Required> [G9223]
--- NOTE | 2019-01-15 09:21 | CT SCAN REPORT ---
EXAM: CT SCAN OF THE ABDOMEN AND PELVIS WITHOUT CONTRAST HISTORY: ABDOMINAL PAIN. BLOATING AND LOOSE STOOLS. SICK TO STOMACH. TECHNIQUE: Standard CT imaging of the abdomen and pelvis was performed without contrast. Comparison: 11/28/17. FINDINGS: There is mild atelectasis or scarring at both lung bases. Moderate coronary artery calcifications are present. There is a tiny hiatal hernia. The liver is normal. The gallbladder is surgically absent. There are stable bilateral lipid rich adrenal adenomas. The pancreas and spleen are normal. A tiny hyperdense cyst is again noted at the upper pole of the right kidney and is unchanged. The kidneys and ureters are otherwise normal. Atherosclerotic calcifications are present within the aorta. There is no aneurysm. There is no retroperitoneal lymphadenopathy. There is abnormal wall thickening of the colon from the distal transverse level through the rectum consistent with colitis. There is no evidence for perforation or abscess. Moderate stool is present within the rectum. There are a few scattered diverticula within the sigmoid region with no evidence for acute diverticulitis. The small bowel loops are normal in caliber. There is no pneumoperitoneum or ascites. The uterus is surgically absent. The urinary bladder is normal. There is stable small fact containing midline and supraumbilical hernias. Degenerative changes are present within the lumbar spine. No osteoblastic or osteolytic process is identified. IMPRESSION: 1. FINDINGS CONSISTENT WITH COLITIS INVOLVING THE DISTAL TRANSVERSE THROUGH THE RECTAL REGIONS WITH NO EVIDENCE FOR PERFORATION OR ABSCESS. 2. MINOR SIGMOID DIVERTICULOSIS WITH NO EVIDENCE FOR ACUTE DIVERTICULITIS. 3. STABLE BILATERAL ADRENAL ADENOMAS. 4. STABLE SMALL FAT CONTAINING VENTRAL AND SUPRAUMBILICAL HERNIAS. 5. ADDITIONAL CHRONIC FINDINGS ABOVE. JOB NUMBER: [id number] [facility]
== END 2019-01-14 11:45 | disposition home or self-care (01) ==
LOC: ER 20:29 → MEDSURG 01-13 00:10
PROVIDERS: ADMIT Internal Medicine; ATTEND Internal Medicine
DX: K52.9 Noninfective gastroenteritis and colitis, unspecified (principal); E86.0 Dehydration; R19.7 Diarrhea, unspecified; E11.9 Type 2 diabetes mellitus without complications; I10 Essential (primary) hypertension; E03.9 Hypothyroidism, unspecified; N28.9 Disorder of kidney and ureter, unspecified; N30.01 Acute cystitis with hematuria; R60.9 Edema, unspecified; K21.9 Gastro-esophageal reflux disease without esophagitis; Z90.49 Acquired absence of other specified parts of digestive tract; Z85.038 Personal history of other malignant neoplasm of large intestine
CPT/HCPCS: 74176; 80048; 80053; 81001; 83605; 83690; 85025; 85027; 93005; 93010; 96374; 96375; 99217; 99220; 99285; J0696

== ENCOUNTER 2019-01-29 16:44 | Emergency (ER) | payer MEDICARE, OTHER ==
[2019-01-29] MEDS ORDERED: 0.9 % SODIUM CHLORIDE 1,000 ML BAG IV ONE (17:01)
--- NOTE | 2019-01-29 17:07 | Emergency Department Record ---
History of Present Illness - General Chief complaint: Nausea, Vomiting, Diarrhea Stated complaint: DIARRHEA,CONSTANT URGE TO GO Time Seen by Provider: 01/29/19 17:00 Source: Patient Mode of Arrival: Ambulatory Limitations: No limitations - History of Present Illness Initial comments: 78 yo female presents with loose stools for the last one to two weeks. She was diagnosed with colitis in late December. She initially improved and had four days without diarrhea. She took prune juice and the symptoms restarted. She did complete a full course of her antibiotics (Cipro and Flagyl). She has stopped her Flagyl at one point but resumed. She has a good appetite. She is trying to eat and drink. She has some pain that comes and goes but none currently. She has 2-3 loose stools yesterday and about 4 today. No vomiting. No fever. She was discharged on 01/14/19. She has colon cancer in 1993 treated with resection. Her last colonoscopy per her was in the fall and it was normal. PCP Inga Vital NP., MD complaint: Diarrhea Onset/Timin -: Days(s) Description of Vomiting: Watery Description of Diarrhea: Water Location: Diffuse Radiation: Other Severity: Moderate Severity scale (1-10): 2 Quality: Aching, Constant Consistency: Intermittent Improves with: None, Vomiting Context: Other Associated Symptoms: Other - Related Data Allergies Allergy/AdvReac Type Severity Reaction Status Date / Time nitrofurantoin Allergy Intermediate RASH Verified 01/29/19 17:02 [From Macrobid] nitrofurantoin Allergy Intermediate RASH Verified 01/29/19 17:02 macrocrystalline [From Macrodantin] penicillin V Allergy Intermediate rash Verified 01/29/19 17:02 Sulfa (Sulfonamide Allergy Intermediate SWELLING Verified 01/29/19 17:02 Antibiotics) OF THE FACE sulfamethoxazole Allergy Intermediate SWELLING Verified 01/29/19 17:02 [From Bactrim] OF THE FACE trimethoprim [From Bactrim] Allergy Intermediate SWELLING Verified 01/29/19 17:02 OF THE FACE Travel Screening - Travel/Exposure Within Last 30 Days Have you traveled within the last 30 days?: No - Travel/Exposure Within Last Year Have you traveled outside the [place] in the last year?: No - Additonal Travel Details Have you been exposed to anyone with a communicable illness?: No - Travel Symptoms Symptom Screening: None Review of Systems Constitutional: Denies: Chills, Fever, Malaise, Weakness Eyes: Denies: Eye discharge ENT: Denies: Congestion, Throat pain Respiratory: Denies: Cough, Dyspnea Cardiovascular: Denies: Chest pain, Palpitations, Syncope Endocrine: Denies: Fatigue Gastrointestinal: Reports: Abdominal pain (occasional cramps), Diarrhea. Denies: Constipation, Hematemesis, Hematochezia, Melena, Nausea, Vomiting Genitourinary: Denies: Dysuria Musculoskeletal: Denies: Arthralgia, Back pain, Neck pain Skin: Denies: Bruising, Change in color, Rash Neurological: Denies: Headache Psychiatric: Denies: Anxiety Hematological/Lymphatic: Denies: Easy bleeding, Easy bruising Past Medical History - SOCIAL HISTORY Smoking Status: Never smoker Alcohol Use: None Drug Use: None - RESPIRATORY Hx Respiratory Disorders: No - CARDIOVASCULAR Hx Cardio Disorders: Yes Hx Edema: Yes Hx Hypertension: Yes - NEURO Hx Neuro Disorders: No Hx Neuropathy: Yes - GI Hx GI Disorders: Yes Hx Reflux: Yes Hx Ulcer: Yes - Hx Genitourinary Disorders: No Hx UTI: Yes - ENDOCRINE Hx Endocrine Disorders: Yes Hx Diabetes: Yes Hx Thyroid Disease: Yes (low) - MUSCULOSKELETAL Hx Musculoskeletal Disorders: No Hx Arthritis: Yes (Bilateral Knees) - PSYCH Hx Psych Problems: Yes Hx Anxiety: Yes Hx Depression: Yes - HEMATOLOGY/ONCOLOGY Hx Hematology/Oncology Disorders: Yes Hx Cancer: Yes (Colon) Hx Chemotherapy: Yes Hx Radiation Therapy: No Family Medical History Any Significant Family History?: Yes Hx Cancer: Father, Mother, Brother/Sister Hx Diabetes: Father Hx Heart Disease: Mother Physical Exam - General General Appearance: Alert, Oriented x3, Cooperative, No acute distress Limitations: No limitations - Head Head exam: Atraumatic, Normocephalic, Normal inspection - Eye Eye exam: Normal appearance, PERRL. negative: Conjunctival injection, Scleral icterus - ENT ENT exam: Normal exam, Mucous membranes moist. negative: Mucous membranes dry Ear exam: Normal external inspection Nasal Exam: Normal inspection Mouth exam: Normal external inspection - Neck Neck exam: Normal inspection - Respiratory Respiratory exam: Normal lung sounds bilaterally. negative: Respiratory distress - Cardiovascular Cardiovascular Exam: Regular rate, Normal rhythm, Normal heart sounds - GI/Abdominal GI/Abdominal exam: Soft, Normal bowel sounds. negative: Distended, Guarding, Rebound, Rigid, Tenderness - Rectal Rectal exam: Deferred - exam: Deferred - Extremities Extremities exam: Normal inspection - Back Back exam: Denies: CVA tenderness (R), CVA tenderness (L) - Neurological Neurological exam: Alert, Oriented X3 - Psychiatric Psychiatric exam: Normal affect, Normal mood - Skin Skin exam: Dry, Intact, Normal color, Warm Course Vital Signs 01/29/19 16:50 Temperature 98.2 F Pulse Rate 109 H Respiratory 20 Rate Blood Pressure 164/73 Pulse Ox 97 - Reevaluation(s) Reevaluation #1: The EMR was reviewed from the December admission and discharge The CT of the Abdomen was reviewed 01/29/19 17:17 01/29/19 17:38 There are no acute significant abnormalities of the CBC. Chronic anemia There are no acute significant abnormalities of the CMP. Improved renal function with CR 1.2 01/29/19 18:[address] scan was reviewed. No colitis. Moderate stool throughout. We discussed the results of the tests and questions were answered at the time of discharge. The patient is doing well and is comfortable with DC as opposed to observation admission. DC vitals were reviewed. We discussed at length reasons to immediately return to the ED as well as close follow up. The patient will call the PCP for close follow up of this ED visit to review this visit and the tests performed I SW her PCP Loni Staton [employer] to update her on the symptoms and advised close follow up 01/29/19 18:34 The UA is negative Medical Decision Making - Lab Data Result diagrams: 01/29/19 17:10 01/29/19 17:10 Disposition Disposition: Discharge Clinical Impression: Diarrhea Disposition: Home, Self-Care Condition: (1) Good Instructions: Acute Diarrhea (ED) Additional Instructions: Call your doctor for the next available follow up appointment Review this ER visit and the tests performed with your family doctor Return to the ER for a recheck if worse, any new concerns or questions Forms: Patient Portal Access Time of Disposition: 18:28 Quality - Quality Measures Quality Measures: N/A - Blood Pressure Screening Does Patient Have Any of the Following: Active Dx of HTN Blood Pressure Classification: Hypertensive Reading Systolic Measurement: 164 Diastolic Measurement: 73 Screening for High Blood Pressure: Patient Exclusion, Hx of HTN [G9744] Pre-Hypertensive Follow-up Interventions: Referral to alternative/primary care provider.
[2019-01-29 17:15] LABS: ABSOLUTE NEUTROPHIL COUNT 5.53; BASO % 0.2 % (0-6); GRAN % 68.6 % (47-80); HEMATOCRIT 32.2 % (35.0-47.0); HEMOGLOBIN 10.2 gm/dl (11.6-16.0); MEAN CORPUSCULAR HGB CONC 31.7 g/dl (32-36); MEAN PLATELET VOLUME 9.1 fl (7.4-10.4); MONO % 7.2 % (0-9); PLATELET COUNT 304 K/uL (130-400); RED BLOOD COUNT 3.01 M/uL (3.80-5.40); RED CELL DISTRIBUTION WIDTH 16.4 % (11.5-14.5); WHITE BLOOD COUNT W/O DIFF 8.1 K/uL (4.2-12.2)
[2019-01-29 17:16] LABS: MEAN CORPUSCULAR HEMOGLOBIN 33.8 pg (27-33)
[2019-01-29 17:29] LABS: BILIRUBIN,TOTAL 0.2 mg/dL (0.2-1.0); CREATININE 1.2 mg/dL (0.5-0.9)
[2019-01-29 17:30] LABS: TOTAL PROTEIN 6.8 g/dL (6.6-8.7)
[2019-01-29 17:34] LABS: ALB/GLOB RATIO 1.7 (1.1-1.8); ALBUMIN 4.3 g/dL (4.0-5.0)
[2019-01-29 18:28] LABS: URINE APPEARANCE CLEAR; URINE BILIRUBIN NEGATIVE (NEGATIVE); URINE BLOOD NEGATIVE (NEGATIVE); URINE COLOR YELLOW; URINE GLUCOSE (UA) NEGATIVE (NEGATIVE); URINE KETONE NEGATIVE (NEGATIVE); URINE LEUKOCYTE ESTERASE NEGATIVE (NEGATIVE); URINE NITRITE NEGATIVE (NEGATIVE); URINE PROTEIN NEGATIVE (NEGATIVE); URINE UROBILINOGEN 0.2 E.U./dL (0.20 - 1.00)
--- NOTE | 2019-01-30 10:50 | CT SCAN REPORT ---
EXAM: CT OF THE ABDOMEN AND PELVIS WITHOUT CONTRAST HISTORY: ABDOMINAL PAIN FOR THREE WEEKS. TECHNIQUE: Standard CT imaging of the abdomen and pelvis without IV contrast was obtained. Comparison: 01/12/19. FINDINGS: Coronary artery calcifications are noted at the lung bases. The lung bases are clear. Evaluation of the solid organs is suboptimal without intravenous contrast. The liver is unremarkable. The gallbladder has been resected. No peripancreatic fat stranding. A 3.2 cm nodule within the right adrenal gland is stable from 02/19/15, and mild left adrenal gland thickening is again seen. There is no nephrolithiasis or hydronephrosis within the kidneys. There is an 8 mm indeterminate density lesion within the superior pole of the right kidney which is hyperdense. No small bowel dilatation. The bladder is distended. There is a large amount of stool throughout the colon, which is redundant. No pericolonic inflammation. The appendix has been resected. No pelvic or retroperitoneal adenopathy. There are diffuse arterial calcifications. There is a small fat containing ventral wall hernia near midline, with another closer to the umbilicus. IMPRESSION: 1. LARGE COLONIC STOOL BURDEN WITHOUT EVIDENCE FOR COLITIS. 2. STABLE RIGHT ADRENAL NODULE, LIKELY AN ADENOMA. 3. INDETERMINATE 8 MM RIGHT RENAL LESION, LIKELY A HYPERDENSE CYST THOUGH A SOLID LESION CANNOT BE EXCLUDED. THIS COULD BE FURTHER ASSESSED WITH ULTRASOUND. JOB NUMBER: [id number] [facility]
== END 2019-01-29 18:43 | disposition home or self-care (01) ==
LOC: ER 16:44
DX: R19.7 Diarrhea, unspecified (principal); R11.2 Nausea with vomiting, unspecified; D64.9 Anemia, unspecified; E11.9 Type 2 diabetes mellitus without complications; I10 Essential (primary) hypertension; Z85.038 Personal history of other malignant neoplasm of large intestine
CPT/HCPCS: 74176; 80053; 81003; 83690; 85025; 89055; 96360; 99284; J7030